=== PATIENT | male | born 1950 | race Caucasian/White ===

== ENCOUNTER 2017-09-13 09:57 | Inpatient (IN) | payer MEDICARE, BC ==
[2017-09-13] MEDS ORDERED: Ketorolac 30 MG/ML SDV IVPUSH ONE (10:53)
[2017-09-13] MEDS ORDERED: Sodium Chloride 0.9% 10 ML Syringe FLUSH PRN ×2 (10:53→14:38)
--- NOTE | 2017-09-13 10:59 | EDM.PDOC ---
ED HPI GENERAL MEDICAL PROBLEM - General Chief Complaint: Lower Extremity Injury/Pain Stated Complaint: BOTH FEET ARE SORE COUGH Time Seen by Provider: 09/13/17 10:45 Source of Information: Reports: Patient History Limitations: Reports: No Limitations - History of Present Illness INITIAL COMMENTS - FREE TEXT/NARRATIVE: 67 yo male with a pHx of borderline AODM and gout presents with pain and redness to both feet since this past . The left foot is much worse than the right one. No fever. Is aware of foods to avoid and has quit ETOH. Here with his . Does have a local provider. Onset: Gradual Onset Date: 09/10/17 Duration: Day(s):, Getting Worse Location: Reports: Lower Extremity, Left, Lower Extremity, Right Quality: Reports: Ache Severity: Moderate Improves with: Reports: None Worsens with: Reports: Other (? time) Context: Reports: Other (PHx of gout, says this feels similar) Associated Symptoms: Reports: No Other Symptoms. Denies: Fever/Chills Treatments GERONTOLOGY AIDE: Reports: Other (see below) (none) 10 Pain Score (Numeric/FACES): 2 - Related Data Allergies Allergy/AdvReac Type Severity Reaction Status Date / Time aspirin Allergy Severe Facial Verified 10/14/15 14:19 Swelling Home Meds: Home Meds Calcium Carbonate/Vitamin D3 [Caltrate 600 + D Tablet] 1 tab PO DAILY 10/14/15 [ History] Glucosamine [Glucosamine Sulfate] 500 mg PO DAILY 10/14/15 [History] Naproxen Sodium [Aleve] 220 mg PO DAILY 10/14/15 [History] Benzonatate [Tessalon Perle] 100 mg PO TID 09/13/17 [History] Dextromethorphan/guaiFENesin [Mucinex DM ER 600-30 MG] 1 tab PO BID 09/13/17 [ History] Past Medical History Musculoskeletal History: Reports: Gout - Past Surgical History Musculoskeletal Surgical History: Reports: Knee Replacement Social & Family History - Family History Oncologic: Reports: Breast, Lung - Tobacco Use Smoking Status *Q: Never Smoker Second Hand Smoke Exposure: No - Alcohol Use Days Per Week of Alcohol Use: 0 - Recreational Drug Use Recreational Drug Use: No Review of Systems - Review of Systems Review Of Systems: See Below Constitutional: Reports: No Symptoms Ears: Reports: No Symptoms Nose: Reports: Clear Discharge (cold sx's for a few days) Respiratory: Reports: No Symptoms Cardiovascular: Reports: No Symptoms GI/Abdominal: Reports: No Symptoms Genitourinary: Reports: No Symptoms Musculoskeletal: Reports: Foot Pain (bilaterally L > R) Skin: Reports: Erythema (devin. the L foot), Change in Color ED EXAM, GENERAL - Physical Exam Exam: See Below Exam Limited By: No Limitations General Appearance: Alert, WD/WN, No Apparent Distress Eye Exam: Bilateral Eye: Normal Inspection Ear Exam: Bilateral Ear: Auricle Normal, Canal Normal Throat/Mouth: Normal Voice, No Airway Compromise Head: Atraumatic, Normocephalic Neck: Normal Inspection Respiratory/Chest: No Respiratory Distress, Lungs Clear, Normal Breath Sounds, No Accessory Muscle Use Extremities: Increased Warmth (L foot dorsally.), Redness (devin the dorsum of the L foot), Other (both feet tender, mainly over the arches) Neurological: Alert, Oriented, CN II-XII Intact, Normal Cognition, No Motor/ Sensory Deficits Psychiatric: Normal Affect, Normal Mood Skin Exam: Warm, Dry, Intact, No Rash, Erythema, Increased Warmth (dorsum of L foot very red. MT joint of L foot red, mildly tender. R foot very subtle redness and tenderness, not as severe. ) Course - Vital Signs Last Recorded V/S: Last Vital Signs Temp 37.0 C 09/13/17 15:58 Pulse 95 09/13/17 15:10 Resp 20 09/13/17 15:10 BP 159/87 H 09/13/17 15:10 Pulse Ox 99 09/13/17 15:10 - Orders/Labs/Meds Orders: Active Orders 24 hr Category Date Time Status CULTURE BLOOD [BC] Stat Lab 09/13/17 13:10 Received CULTURE BLOOD [BC] Stat Lab 09/13/17 13:20 Received Blood Culture x2 Reflex Set [OM.PC] Urgent Oth 09/13/17 13:09 Ordered Medication Orders Acetaminophen (Tylenol) 650 mg PO Q4H PRN PRN Reason: Pain (Mild 1-3)/fever Benzonatate (Tessalon Perles) 100 mg PO TID PRN PRN Reason: Cough Dextrose (Glutose 15) 15 gm PO ASDIRECTED PRN PRN Reason: Hypoglycemia Dextrose/Water (Dextrose 50% In Water) 50 ml IV ASDIRECTED PRN PRN Reason: Hypoglycemia Enoxaparin Sodium (Lovenox) 40 mg SUBCUT Q24H [facility] Last Admin: 09/13/17 16:03 Dose: 40 mg Guaifenesin/Codeine Phosphate (Robitussin Ac) 10 ml PO Q4H PRN PRN Reason: Cough Last Admin: 09/13/17 16:39 Dose: 10 ml Cefazolin Sodium/Dextrose 1 gm (/ Premix) 50 mls @ 100 mls/hr IV Q8H [facility] Last Admin: 09/13/17 15:58 Dose: 100 mls/hr Lactated Ringer's (Ringers, Lactated) 1,000 mls @ 125 mls/hr IV ASDIRECTED [facility] Ibuprofen (Motrin) 400 mg PO Q6H [facility] Stop: 09/14/17 21:01 Last Admin: 09/13/17 15:58 Dose: 400 mg Insulin Aspart (Novolog) 0 unit SUBCUT QIDACANDBED [facility] PRN Reason: Protocol Last Admin: 09/13/17 16:39 Dose: 3 units Magnesium Hydroxide (Milk Of Magnesia) 30 ml PO Q12H PRN PRN Reason: Constipation Metformin HCl (Glucophage) 500 mg PO BIDMEALS [facility] Last Admin: 09/13/17 16:45 Dose: 500 mg Ondansetron HCl (Zofran) 4 mg IV Q4H PRN PRN Reason: Nausea/Vomiting Oxycodone HCl (Oxycodone) 5 mg PO Q4H PRN PRN Reason: Pain (moderate 4-6) Pneumococcal Polyvalent Vaccine (Pneumovax 23) 0.5 ml IM .ONCE ONE Stop: 09/15/17 10:01 Polyethylene Glycol (Miralax) 17 gm PO DAILY PRN PRN Reason: Constipation Senna/Docusate Sodium (Senna Plus) 1 tab PO BID PRN PRN Reason: Constipation Sodium Chloride (Saline Flush) 10 ml FLUSH ASDIRECTED PRN PRN Reason: Keep Vein Open Labs: Laboratory Tests 09/13/17 09/13/17 09/13/17 Range/Units 11:00 11:00 11:00 WBC 10.4 (4.5-11.0) K/uL RBC 4.36 (4.30-5.90) M/uL Hgb 12.8 (12.0-15.0) g/dL Hct 37.0 L (40.0-54.0) % MCV 85 (80-98) fL MCH 29 (27-31) pg MCHC 35 (32-36) % Plt Count 258 (150-400) K/uL ESR 91 H (0-20) mm/hr Sodium 129 L (140-148) mmol/L Potassium 4.5 (3.6-5.2) mmol/L Chloride 95 L (100-108) mmol/L Carbon Dioxide 26 (21-32) mmol/L Anion Gap 12.5 (5.0-14.0) mmol/L BUN 18 (7-18) mg/dL Creatinine 1.2 (0.8-1.3) mg/dL Est Cr Clr Drug Dosing 56.61 mL/min Estimated GFR (MDRD) > 60 (>60) Glucose 326 H (74-106) mg/dL Hemoglobin A1c (4.5-6.2) % Uric Acid (3.5-7.2) mg/dL Calcium 8.9 (8.5-10.1) mg/dL C-Reactive Protein (0.0-0.3) mg/dL 09/13/17 09/13/17 09/13/17 Range/Units 11:00 11:28 13:09 WBC (4.5-11.0) K/uL RBC (4.30-5.90) M/uL Hgb (12.0-15.0) g/dL Hct (40.0-54.0) % MCV (80-98) fL MCH (27-31) pg MCHC (32-36) % Plt Count (150-400) K/uL ESR (0-20) mm/hr Sodium (140-148) mmol/L Potassium (3.6-5.2) mmol/L Chloride (100-108) mmol/L Carbon Dioxide (21-32) mmol/L Anion Gap (5.0-14.0) mmol/L BUN (7-18) mg/dL Creatinine (0.8-1.3) mg/dL Est Cr Clr Drug Dosing mL/min Estimated GFR (MDRD) (>60) Glucose (74-106) mg/dL Hemoglobin A1c 7.8 H (4.5-6.2) % Uric Acid 4.2 (3.5-7.2) mg/dL Calcium (8.5-10.1) mg/dL C-Reactive Protein 5.14 H (0.0-0.3) mg/dL Meds: Medications Generic Name Dose Route Start Last Admin Trade Name Freq PRN Reason Stop Dose Admin Acetaminophen 650 mg 09/13/17 14:38 Tylenol PO Q4H PRN Pain (Mild 1-3)/fever Benzonatate 100 mg 09/13/17 16:13 Tessalon Perles PO TID PRN Cough Dextrose 15 gm 09/13/17 14:38 Glutose 15 PO ASDIRECTED PRN Hypoglycemia Dextrose/Water 50 ml 09/13/17 14:38 Dextrose 50% In Water IV ASDIRECTED PRN Hypoglycemia Enoxaparin Sodium 40 mg 09/13/17 16:00 09/13/17 16:03 Lovenox SUBCUT 40 mg Q24H [facility] Administration Guaifenesin/Codeine Phosphate 10 ml 09/13/17 16:13 09/13/17 16:39 Robitussin Ac PO 10 ml Q4H PRN Administration Cough Cefazolin Sodium/Dextrose 1 gm 50 mls @ 100 mls/hr 09/13/17 16:00 09/13/17 15 :58 / Premix IV 100 mls/hr Q8H [facility] Administration Lactated Ringer's 1,000 mls @ 125 mls/hr 09/13/17 17:15 Ringers, Lactated IV ASDIRECTED [facility] Ibuprofen 400 mg 09/13/17 15:00 09/13/17 15:58 Motrin PO 09/14/17 21:01 400 mg Q6H [facility] Administration Insulin Aspart 0 unit 09/13/17 17:00 09/13/17 16:39 Novolog SUBCUT 3 units QIDACANDBED [facility] Administration Protocol Magnesium Hydroxide 30 ml 09/13/17 14:38 Milk Of Magnesia PO Q12H PRN Constipation Metformin HCl 500 mg 09/13/17 17:00 09/13/17 16:45 Glucophage PO 500 mg BIDMEALS [facility] Administration Ondansetron HCl 4 mg 09/13/17 14:38 Zofran IV Q4H PRN Nausea/Vomiting Oxycodone HCl 5 mg 09/13/17 14:38 Oxycodone PO Q4H PRN Pain (moderate 4-6) Pneumococcal Polyvalent Vaccine 0.5 ml 09/15/17 10:00 Pneumovax 23 IM 09/15/17 10:01 .ONCE ONE Polyethylene Glycol 17 gm 09/13/17 14:38 Miralax PO DAILY PRN Constipation Senna/Docusate Sodium 1 tab 09/13/17 14:38 Senna Plus PO BID PRN Constipation Sodium Chloride 10 ml 09/13/17 14:38 Saline Flush FLUSH ASDIRECTED PRN Keep Vein Open Discontinued Medications Generic Name Dose Route Start Last Admin Trade Name Freq PRN Reason Stop Dose Admin Lactated Ringer's 1,000 mls @ 250 mls/hr 09/13/17 13:15 09/13/17 13:52 Ringers, Lactated IV 09/13/17 17:16 250 mls/hr ASDIRECTED [facility] Administration Piperacillin/Tazobactam/ 50 mls @ 100 mls/hr 09/13/17 13:30 09/13/17 13:52 Dextrose 3.375 gm/ Premix IV 100 mls/hr Q6H [facility] Administration Insulin Human Regular 12 unit 09/13/17 11:27 09/13/17 11:34 Novolin R SUBCUT 09/13/17 11:28 12 units ONETIME ONE Administration Protocol Ketorolac Tromethamine 30 mg 09/13/17 10:53 09/13/17 11:25 Toradol IVPUSH 09/13/17 10:54 30 mg ONETIME ONE Administration Sodium Chloride 10 ml 09/13/17 10:53 09/13/17 11:25 Saline Flush FLUSH 10 ml ASDIRECTED PRN Administration Keep Vein Open Departure - Departure Time of Disposition: 15:55 Disposition: Admitted As Inpatient 67 Condition: Fair Clinical Impression: Cellulitis of foot, left - Discharge Information
[2017-09-13] MEDS ORDERED: Insulin Regular, Human 100 Units/ML 10 ML Vial SUBCUT ONE (11:27)
[2017-09-13] MEDS ORDERED: Lactated Ringers 1,000 ML IV SCH (13:15)
[2017-09-13] MEDS ORDERED: Piperacillin/Tazobactam 3.375 GM in Sodium Chloride 0.9% 50 ML IV SCH (13:15)
[2017-09-13] MEDS ORDERED: Piperacillin/Tazobactam/Dext 3.375 GM in Premix Bag 1 BAG IV SCH (13:30)
--- NOTE | 2017-09-13 13:59 | PCM.HP ---
H&P History of Present Illness - General Date of Service: 09/13/17 Admit Problem/Dx: Admission Diagnosis/Problem Admission Diagnosis/Problem Cellulitis Source of Information: Patient, Family, Provider, RN Notes Reviewed History Limitations: Reports: No Limitations - History of Present Illness Initial Comments - Free Text/Narative: Mr. Mcbride is a 67-year-old gentleman who was admitted through the emergency department with cellulitis of his left foot and uncontrolled type 2 diabetes mellitus. He does have a known history of gout with intermittent exacerbations. He first developed pain in his left foot 3 days ago and assumed at that time that he was developing some gout. He took nonsteroidal therapy with naproxen but despite this had progressive symptoms with increased swelling and development of erythema across the dorsum of the foot. Pain became so severe today that he was unable to put any weight on the foot and he presented to the emergency department for further evaluation. White blood cell count is found to be normal but there is elevation of his sedimentation rate and CRP. He denies fevers, chills, sweats or anorexia. Glucose level was found to be significantly elevated greater than 300, he admits a history of diabetes but has not been monitoring glucose levels over the past year. - Related Data Allergies/Adverse Reactions: Allergies Allergy/AdvReac Type Severity Reaction Status Date / Time aspirin Allergy Severe Facial Verified 10/14/15 14:19 Swelling Home Medications: Home Meds Calcium Carbonate/Vitamin D3 [Caltrate 600 + D Tablet] 1 tab PO DAILY 10/14/15 [ History] Glucosamine [Glucosamine Sulfate] 500 mg PO DAILY 10/14/15 [History] Naproxen Sodium [Aleve] 220 mg PO DAILY 10/14/15 [History] Benzonatate [Tessalon Perle] 09/13/17 [History] Past Medical History Musculoskeletal History: Reports: Gout - Past Surgical History Musculoskeletal Surgical History: Reports: Knee Replacement Social & Family History - Family History Oncologic: Reports: Breast, Lung - Tobacco Use Smoking Status *Q: Never Smoker Second Hand Smoke Exposure: No - Alcohol Use Days Per Week of Alcohol Use: 0 - Recreational Drug Use Recreational Drug Use: No H&P Review of Systems - Review of Systems: Review Of Systems: See Below General: Reports: Weakness. Denies: Fever, Chills HEENT: Reports: No Symptoms Pulmonary: Reports: No Symptoms Cardiovascular: Reports: No Symptoms Gastrointestinal: Reports: No Symptoms Genitourinary: Reports: No Symptoms Musculoskeletal: Reports: Foot Pain (Left foot) Skin: Reports: Erythema (Left foot) Psychiatric: Reports: No Symptoms Neurological: Reports: No Symptoms Hematologic/Lymphatic: Reports: No Symptoms Immunologic: Reports: No Symptoms Exam - Exam Exam: See Below - Vital Signs Vital Signs: Last Vital Signs Temp 97.1 F 09/13/17 10:33 Pulse 89 09/13/17 12:15 Resp 21 H 09/13/17 12:15 BP 143/90 H 09/13/17 12:15 Pulse Ox 93 L 09/13/17 12:15 Weight: 267 lb - Exam Quality Assessment: DVT Prophylaxis General: Alert, Oriented, Cooperative, Mild Distress HEENT: Conjunctiva Clear, Hearing Intact, Mucosa Moist & [place], Normal Nasal Septum, Posterior Pharynx Clear, Pupils Equal Neck: Supple, Trachea Midline, +2 Carotid Pulse wo Bruit Lungs: Clear to Auscultation, Normal Respiratory Effort Cardiovascular: Regular Rate, Regular Rhythm, Normal S1, Normal S2. No: Systolic Murmur, Diastolic Murmur GI/Abdominal Exam: Soft, Non-Tender, No Organomegaly, No Distention Back Exam: Normal Inspection, Full Range of Motion Extremities: Increased Warmth, Redness (Swelling left foot) Skin: Warm, Dry, Intact Neurological: Cranial Nerves Intact, Strength Equal Bilateral, Normal Speech, Normal Tone, Sensation Intact. No: Focal Deficit Neuro Extensive - Mental Status: Alert, Oriented x3, Normal Mood/Affect, Normal Cognition, Memory Intact - Patient Data Lab Results Last 24 hrs: Laboratory Results - last 24 hr 09/13/17 09/13/17 09/13/17 Range/Units 11:00 11:00 11:00 WBC 10.4 (4.5-11.0) K/uL RBC 4.36 (4.30-5.90) M/uL Hgb 12.8 (12.0-15.0) g/dL Hct 37.0 L (40.0-54.0) % MCV 85 (80-98) fL MCH 29 (27-31) pg MCHC 35 (32-36) % Plt Count 258 (150-400) K/uL ESR 91 H (0-20) mm/hr Sodium 129 L (140-148) mmol/L Potassium 4.5 (3.6-5.2) mmol/L Chloride 95 L (100-108) mmol/L Carbon Dioxide 26 (21-32) mmol/L Anion Gap 12.5 (5.0-14.0) mmol/L BUN 18 (7-18) mg/dL Creatinine 1.2 (0.8-1.3) mg/dL Est Cr Clr Drug Dosing 56.61 mL/min Estimated GFR (MDRD) > 60 (>60) Glucose 326 H (74-106) mg/dL Hemoglobin A1c (4.5-6.2) % Uric Acid (3.5-7.2) mg/dL Calcium 8.9 (8.5-10.1) mg/dL C-Reactive Protein (0.0-0.3) mg/dL 09/13/17 09/13/17 09/13/17 Range/Units 11:00 11:28 13:09 WBC (4.5-11.0) K/uL RBC (4.30-5.90) M/uL Hgb (12.0-15.0) g/dL Hct (40.0-54.0) % MCV (80-98) fL MCH (27-31) pg MCHC (32-36) % Plt Count (150-400) K/uL ESR (0-20) mm/hr Sodium (140-148) mmol/L Potassium (3.6-5.2) mmol/L Chloride (100-108) mmol/L Carbon Dioxide (21-32) mmol/L Anion Gap (5.0-14.0) mmol/L BUN (7-18) mg/dL Creatinine (0.8-1.3) mg/dL Est Cr Clr Drug Dosing mL/min Estimated GFR (MDRD) (>60) Glucose (74-106) mg/dL Hemoglobin A1c 7.8 H (4.5-6.2) % Uric Acid 4.2 (3.5-7.2) mg/dL Calcium (8.5-10.1) mg/dL C-Reactive Protein 5.14 H (0.0-0.3) mg/dL Result Diagrams: 09/13/17 11:00 09/13/17 11:00 *Q Meaningful Use (ADM) - VTE *Q VTE Criteria *Q: - VTE Risk Assess *Q Each Risk Factor Represents 1 Point: Obesity ( BMI > 25 kg/m2) Total Score 1 Point Risk Factors: 1 Each Risk Factor Represents 2 Points: Age 60 - 74 Years Total Score 2 Point Risk Factors: 2 Each Risk Factor Represents 3 Points: None Total Score 3 Point Risk Factors: 0 Each Risk Factor Represents 5 Points: None Total Score 5 Point Risk Factors: 0 Venous Thromboembolism Risk Factor Score *Q: 3 - Stroke *Q Stroke Criteria *Q: - AMI *Q AMI Criteria *Q: Problem List Initiated/Reviewed/Updated: Yes Orders Last 24hrs: Active Orders 24 hr Category Date Time Status Patient Status Manage Transfer [TRANSFER] Routine ADT 09/13/17 13:41 Active CULTURE BLOOD [BC] Stat Lab 09/13/17 13:10 Received CULTURE BLOOD [BC] Stat Lab 09/13/17 13:20 Received Lactated Ringers [Ringers, Lactated] 1,000 ml Med 09/13/17 13:15 Active IV ASDIRECTED Piperacillin/Tazobactam/Dext [Zosyn in Dextrose Iso- Med 09/13/17 13:30 Active Osmotic 3.375 GM] 3.375 gm Premix Bag 1 bag IV Q6H Sodium Chloride 0.9% [Saline Flush] Med 09/13/17 10:53 Active 10 ml FLUSH ASDIRECTED PRN Blood Culture x2 Reflex Set [OM.PC] Urgent Oth 09/13/17 13:09 Ordered Saline Lock Insert [OM.PC] Routine Oth 09/13/17 10:53 Ordered Resuscitation Status Routine Resus Stat 09/13/17 13:43 Ordered Medication Orders Lactated Ringer's (Ringers, Lactated) 1,000 mls @ 250 mls/hr IV ASDIRECTED [facility] Stop: 09/13/17 17:16 Last Admin: 09/13/17 13:52 Dose: 250 mls/hr Piperacillin/Tazobactam/ (Dextrose 3.375 gm/ Premix) 50 mls @ 100 mls/hr IV Q6H [facility] Last Admin: 09/13/17 13:52 Dose: 100 mls/hr Sodium Chloride (Saline Flush) 10 ml FLUSH ASDIRECTED PRN PRN Reason: Keep Vein Open Last Admin: 09/13/17 11:25 Dose: 10 ml Assessment/Plan Comment:: ASSESSMENT AND PLAN CELLULITIS LEFT FOOT-increased pain and swelling over the past 3 days associated with erythema and increased warmth. History of gout, current inflammation spreads across the dorsum of the foot with associated erythema. -IV fluids for hydration -Pain medication as needed -Controlled diabetes -Blood cultures pending -Uric acid level pending -Cefazolin 1 g IV every 8 hours TYPE 2 DIABETES MELLITUS-uncontrolled with significant elevation in glucose -Consistent carb diet -Metformin 500 mg by mouth twice a day -4 times a day glucometers -Hemoglobin A1c in a.m. -Low-dose sliding scale NovoLog -Consult staff development educator tomorrow MAINTENANCE ISSUES -DVT prophylaxis; Lovenox 40 mg subcutaneous daily -GI prophylaxis; not indicated -Almazan catheter; not indicated -Nutrition; consistent carb diet -Nicotine dependence; not required CODE STATUS-FULL CODE ADMISSION STATUS-patient will be admitted to inpatient status, expect at least a 2 night hospital stay for evaluation and management of problems as outlined above. At the time of this admission I do not reasonably expected evaluation and management of this problem will require more than a 96 hour hospital stay. DISPOSITION-anticipate discharge to home after the hospital stay. PRIMARY CARE PROVIDER-Dr. Fraire
[2017-09-13] MEDS ORDERED: Magnesium Hydroxide 400 MG/5 ML Susp 30 ML Cup PO PRN (14:38)
[2017-09-13] MEDS ORDERED: Ondansetron 4 MG/2 ML SDV IV PRN (14:38)
[2017-09-13] MEDS ORDERED: Glucose Gel 15 GM in 37.5 GM Tube PO PRN (14:38)
[2017-09-13] MEDS ORDERED: Acetaminophen 325 MG Tab PO PRN (14:38)
[2017-09-13] MEDS ORDERED: 50% Dextrose in Water 50 ML Syringe IV PRN (14:38)
[2017-09-13] MEDS ORDERED: Polyethylene Glycol 3350 Powder 17 GM Packet PO PRN (14:38)
[2017-09-13] MEDS ORDERED: oxyCODONE 5 MG Tab PO PRN (14:38)
[2017-09-13] MEDS: Ibuprofen 400 MG Tab PO SCH ×2 (15:58→21:22)
[2017-09-13] MEDS: ceFAZolin 1 GM in Premix Bag 1 BAG IV SCH ×2 (15:58→23:44)
[2017-09-13] MEDS: Enoxaparin 40 MG/0.4 ML Syringe SUBCUT SCH (16:03)
[2017-09-13] MEDS ORDERED: Benzonatate 100 MG Cap PO PRN (16:13)
[2017-09-13] MEDS: Codeine/guaiFENesin 100mg-10 MG/5 ML Syrup 10 ML Cup PO PRN ×2 (16:39→20:23)
[2017-09-13] MEDS: Insulin Aspart 100 Units/ML 3 ML Pen SUBCUT SCH ×2 (16:39→21:19)
[2017-09-13] MEDS: metFORMIN 500 MG Tab PO SCH (16:45)
[2017-09-13] MEDS: Lactated Ringers 1,000 ML IV SCH (18:54)
[2017-09-14] MEDS: Lactated Ringers 1,000 ML IV SCH (04:08)
[2017-09-14] MEDS: Codeine/guaiFENesin 100mg-10 MG/5 ML Syrup 10 ML Cup PO PRN ×3 (04:10→19:48)
[2017-09-14] MEDS: Ibuprofen 400 MG Tab PO SCH ×4 (04:11→21:09)
[2017-09-14] MEDS: ceFAZolin 1 GM in Premix Bag 1 BAG IV SCH ×3 (07:48→23:41)
[2017-09-14] MEDS: metFORMIN 500 MG Tab PO SCH ×2 (07:49→16:57)
[2017-09-14] MEDS: Insulin Aspart 100 Units/ML 3 ML Pen SUBCUT SCH ×4 (07:49→21:09)
--- NOTE | 2017-09-14 10:55 | PCM.PN ---
- General Info Date of Service: 09/14/17 Functional Status: Reports: Pain Controlled, Tolerating Diet - Review of Systems General: Denies: Fever Pulmonary: Reports: Cough Musculoskeletal: Reports: Foot Pain (left) Systems Review Comment:: No acute events overnight. No fevers overnight. Foot is feeling much better today though there is still some swelling. White blood cell count has improved compared to yesterday. He is able to walk on his foot without significant pain today. Blood cultures are negative at 1 day. - Patient Data Vitals - Most Recent: Last Vital Signs Temp 35.8 C 09/14/17 07:46 Pulse 70 09/14/17 07:46 Resp 16 09/14/17 07:46 BP 107/52 L 09/14/17 07:46 Pulse Ox 98 09/14/17 07:46 Weight - Most Recent: 117.6 kg I&O - Last 24 Hours: Intake & Output 09/13/17 09/14/17 09/14/17 22:59 06:59 14:59 Intake Total 450 863 670 Output Total 0 Balance 450 863 670 Lab Results Last 24 Hours: Laboratory Results - last 24 hr 09/14/17 09/14/17 Range/Units 05:41 05:41 WBC 5.8 (4.5-11.0) K/uL RBC 3.86 L (4.30-5.90) M/uL Hgb 11.4 L (12.0-15.0) g/dL Hct 33.0 L (40.0-54.0) % MCV 86 (80-98) fL MCH 30 (27-31) pg MCHC 35 (32-36) % Plt Count 226 (150-400) K/uL Add Manual Diff Yes Neutrophils % (Manual) 64 (36-66) % Band Neutrophils % 1 L (5-11) % Lymphocytes % (Manual) 24 (24-44) % Monocytes % (Manual) 10 H (2-6) % Eosinophils % (Manual) 1 L (2-4) % Sodium 136 L (140-148) mmol/L Potassium 4.3 (3.6-5.2) mmol/L Chloride 101 (100-108) mmol/L Carbon Dioxide 26 (21-32) mmol/L Anion Gap 13.3 (5.0-14.0) mmol/L BUN 18 (7-18) mg/dL Creatinine 1.1 (0.8-1.3) mg/dL Est Cr Clr Drug Dosing 61.76 mL/min Estimated GFR (MDRD) > 60 (>60) Glucose 256 H (74-106) mg/dL Calcium 8.7 (8.5-10.1) mg/dL Med Orders - Current: Current Medications Acetaminophen (Tylenol) 650 mg PO Q4H PRN PRN Reason: Pain (Mild 1-3)/fever Benzonatate (Tessalon Perles) 100 mg PO TID PRN PRN Reason: Cough Dextrose (Glutose 15) 15 gm PO ASDIRECTED PRN PRN Reason: Hypoglycemia Dextrose/Water (Dextrose 50% In Water) 50 ml IV ASDIRECTED PRN PRN Reason: Hypoglycemia Enoxaparin Sodium (Lovenox) 40 mg SUBCUT Q24H [facility] Last Admin: 09/13/17 16:03 Dose: 40 mg Guaifenesin/Codeine Phosphate (Robitussin Ac) 10 ml PO Q4H PRN PRN Reason: Cough Last Admin: 09/14/17 04:10 Dose: 10 ml Cefazolin Sodium/Dextrose 1 gm (/ Premix) 50 mls @ 100 mls/hr IV Q8H [facility] Last Admin: 09/14/17 07:48 Dose: 100 mls/hr Ibuprofen (Motrin) 400 mg PO Q6H [facility] Stop: 09/14/17 21:01 Last Admin: 09/14/17 09:00 Dose: 400 mg Insulin Aspart (Novolog) 0 unit SUBCUT QIDACANDBED [facility] PRN Reason: Protocol Last Admin: 09/14/17 07:49 Dose: 3 units Magnesium Hydroxide (Milk Of Magnesia) 30 ml PO Q12H PRN PRN Reason: Constipation Metformin HCl (Glucophage) 500 mg PO BIDMEALS [facility] Last Admin: 09/14/17 07:49 Dose: 500 mg Ondansetron HCl (Zofran) 4 mg IV Q4H PRN PRN Reason: Nausea/Vomiting Oxycodone HCl (Oxycodone) 5 mg PO Q4H PRN PRN Reason: Pain (moderate 4-6) Pneumococcal Polyvalent Vaccine (Pneumovax 23) 0.5 ml IM .ONCE ONE Stop: 09/15/17 10:01 Polyethylene Glycol (Miralax) 17 gm PO DAILY PRN PRN Reason: Constipation Senna/Docusate Sodium (Senna Plus) 1 tab PO BID PRN PRN Reason: Constipation Sodium Chloride (Saline Flush) 10 ml FLUSH ASDIRECTED PRN PRN Reason: Keep Vein Open Discontinued Medications Lactated Ringer's (Ringers, Lactated) 1,000 mls @ 250 mls/hr IV ASDIRECTED [facility] Stop: 09/13/17 17:16 Last Admin: 09/13/17 13:52 Dose: 250 mls/hr Piperacillin/Tazobactam/ (Dextrose 3.375 gm/ Premix) 50 mls @ 100 mls/hr IV Q6H [facility] Last Admin: 09/13/17 13:52 Dose: 100 mls/hr Lactated Ringer's (Ringers, Lactated) 1,000 mls @ 125 mls/hr IV ASDIRECTED [facility] Last Admin: 09/14/17 04:08 Dose: 125 mls/hr Insulin Human Regular (Novolin R) 12 unit SUBCUT ONETIME ONE PRN Reason: Protocol Stop: 09/13/17 11:28 Last Admin: 09/13/17 11:34 Dose: 12 units Ketorolac Tromethamine (Toradol) 30 mg IVPUSH ONETIME ONE Stop: 09/13/17 10:54 Last Admin: 09/13/17 11:25 Dose: 30 mg Sodium Chloride (Saline Flush) 10 ml FLUSH ASDIRECTED PRN PRN Reason: Keep Vein Open Last Admin: 09/13/17 11:25 Dose: 10 ml - Exam Quality Assessment: No: Supplemental Oxygen General: Alert, Oriented, Cooperative, No Acute Distress Neck: Supple Lungs: Normal Respiratory Effort GI/Abdominal Exam: No Distention Extremities: Pedal Edema (left foot) Skin: Warm, Dry, Rash (erythema over dorsum of left foot. Mild warmth over MTP' s left forefoot) - Problem List Review Problem List Initiated/Reviewed/Updated: Yes - My Orders Last 24 Hours: My Active Orders 09/14/17 10:48 Convert IV to Saline Lock [OM.PC] Routine - Plan Plan:: ASSESSMENT AND PLAN CELLULITIS LEFT FOOT - much improved since the time of admission. Still has a fair amount of swelling and some erythema the looks dramatically better today. No fevers overnight. White blood cell count significantly decreased from yesterday. He does have a history of gout but uric acid level was normal and his foot is much better without any gout treatment. -Saline lock IV -Pain medication as needed -Blood cultures pending -Cefazolin 1 g IV every 8 hours TYPE 2 DIABETES MELLITUS - uncontrolled with significant elevation in glucose. Hemoglobin A1c 7.8 suggesting we should be able to get by with oral medications after discharge. Sugars remained elevated but are improving. -Consistent carb diet -Metformin 500 mg by mouth twice a day -4 times a day glucometers -Low-dose sliding scale NovoLog -Consult peer educator MAINTENANCE ISSUES -DVT prophylaxis; Lovenox 40 mg subcutaneous daily -GI prophylaxis; not indicated -Almazan catheter; not indicated -Nutrition; consistent carb diet DISPOSITION - anticipate discharge to home after the hospital stay, possibly as early as tomorrow if stable overnight Mando Valentin M.D.
[2017-09-14] MEDS: Enoxaparin 40 MG/0.4 ML Syringe SUBCUT SCH (15:47)
[2017-09-15] MEDS: Insulin Aspart 100 Units/ML 3 ML Pen SUBCUT SCH ×2 (07:58→11:52)
[2017-09-15] MEDS: metFORMIN 500 MG Tab PO SCH (08:00)
[2017-09-15] MEDS: ceFAZolin 1 GM in Premix Bag 1 BAG IV SCH (09:35)
[2017-09-15] MEDS ORDERED: Pneumococcal Polyvalent-23 Vaccine 0.5 ML SDV IM ONE (10:00)
[2017-09-15 12:04] VITALS: BP 160/85
--- NOTE | 2017-09-15 13:52 | PCM.DCSUM1 ---
Discharge Summary - Hospital Course Brief History: 67-year-old male with history of intermittent gout, prediabetes who presented with left foot pain, redness and swelling. He was admitted for management of cellulitis plus or minus a component of inflammatory arthropathy as well as blood sugar management with hyperglycemia noted at presentation. - Discharge Data Discharge Date: 09/15/17 Discharge Disposition: Home, Self-Care 01 Condition: Good - Discharge Diagnosis/Problem(s) (1) Cellulitis of foot, left SNOMED Code(s): 349482751 ICD Code: L03.116 - CELLULITIS OF LEFT LOWER LIMB Status: Acute Current Visit: Yes (2) Type 2 diabetes mellitus SNOMED Code(s): 98634376 ICD Code: E11.9 - TYPE 2 DIABETES MELLITUS WITHOUT COMPLICATIONS Status: Chronic Current Visit: No Qualifiers: Diabetes mellitus complication status: without complication Diabetes mellitus fci insulin use: without psychiatric rn use Qualified Code(s): E11.9 - Type 2 diabetes mellitus without complications (3) History of gout SNOMED Code(s): 524944300 ICD Code: Z87.39 - PERSONAL HISTORY OF DISEASES OF THE MS SYS AND CONN TISS Status: Chronic Current Visit: No - Patient Summary/Data Labs Pending at D/C: Final results of blood cultures which are negative at the time of discharge Hospital Course: Levi presented to the emergency room with left foot pain and swelling so severe that he was unable to walk on his foot. Workup in the emergency room was concerning for cellulitis left foot and he was also noted to have significant hyperglycemia with no previous diagnosis of diabetes. He was admitted to the hospital for IV antibiotics and blood sugar control. Overnight following admission he had significant improvement in his left foot pain and swelling after cefazolin was started. His white blood cell count improved from just over 10,000 to down to 5000. Symptomatically he felt quite a bit better. Blood sugars were still moderately elevated but were better than at the time of admission after metformin and sliding scale insulin were initiated. There was some concern about gout or possibly pseudogout at the time of presentation but his uric acid level was normal so no anti-inflammatory medications were initiated. Overnight the second night following admission he had increased pain in his left foot as well as his right foot after ambulation. He is developed some redness between the second and third toes on the right foot in addition to the redness and swelling over the MTP joints on the left foot. He may have a combination of cellulitis as well as an inflammatory arthropathy. Considerations for the inflammation could be gout versus pseudogout. His pain is tolerable at this time and he wishes to continue his management as an outpatient because he is feeling quite a bit better. He has had good success utilizing colchicine for his gout in the past and would like to use this medication for its anti-inflammatory component. He has a 5 day prescription for this medication. I did elect to continue his antibiotics for 7 more days to cover the probable infectious component with cellulitis involving the left foot. He is able to walk around without significant discomfort. Pain has been controlled with no need for narcotic medications. He'll be discharged home with the above medication changes and will be following up early next week to ensure that he continues to improve. For his diabetes we elected send him home with metformin and he does have an upcoming appointment for dietary counseling. We did check a hemoglobin A1c at the time of admission and it was 7.8. - Patient Instructions Diet: Diabetic Diet Activity: As Tolerated Driving: May Drive Today Showering/Bathing: May Shower Notify Provider of: Fever, Increased Pain, Swelling and Redness, Nausea and/or Vomiting Other/Special Instructions: 1. You were in the hospital for management of cellulitis involving her left foot. I am suspicious there is an inflammatory component, possibly gout as well as the infection of the skin. I recommend 16 additional doses of cephalexin taken 3 times daily. Your first dose will be due tonight at bedtime. This medication may cause stomach upset and can be taken with food. For the possible gout I have provided a prescription for colchicine which you should take twice daily until your symptoms have resolved and then take for one more day after your symptoms have resolved. 2. Also noted during the hospital stay were elevated blood sugars consistent with diabetes mellitus. Your hemoglobin A1c was elevated at 7.8 with a goal of being less than 7 or even lower such as 6.5. We have started you on metformin 500 mg twice daily with breakfast and supper. You have follow-up scheduled with Karen Fowler for dietary education. 3. Please continue your other medications as previously prescribed. 4. Seek medical attention if you develop fever greater than 101, have increasing swelling or increasing pain in either of your feet or if you develop persistent vomiting or diarrhea. - Discharge Plan Prescriptions/Med Rec: Cephalexin 500 mg PO TID #16 capsule Colchicine 0.6 mg PO BID #10 capsule metFORMIN [Glucophage] 500 mg PO BIDMEALS #60 tablet Home Medications: Home Meds Calcium Carbonate/Vitamin D3 [Caltrate 600 Plus D3 Tablet] 1 tab PO DAILY [History] Glucosamine [Glucosamine Sulfate] 500 mg PO DAILY 10/14/15 [History] Naproxen Sodium [Aleve] 220 mg PO DAILY 10/14/15 [History] Benzonatate [Tessalon Perle] 100 mg PO TID 09/13/17 [History] Dextromethorphan/guaiFENesin [Mucinex DM ER 600-30 MG] 1 tab PO BID 09/13/17 [ History] Cephalexin 500 mg PO TID #16 capsule 09/15/17 [Rx] Colchicine 0.6 mg PO BID #10 capsule 09/15/17 [Rx] metFORMIN [Glucophage] 500 mg PO BIDMEALS #60 tablet 09/15/17 [Rx] Patient Handouts: Diabetes and Foot Care, Cellulitis, Adult, Cephalexin tablets or capsules Forms: ED Department Discharge Referrals: Karen Fowler [Registered Dietitian] - 09/25/17 10:30 am (Bring blood sugar records with to appointment.) Kvng Fraire MD [Primary Care Provider] - (follow-up later this week or early next week if your symptoms do not continue to improve) - Discharge Summary/Plan Comment DC Time >30 min.: No (25) - Patient Data Vitals - Most Recent: Last Vital Signs Temp 36.3 C 09/15/17 12:03 Pulse 89 09/15/17 12:03 Resp 17 09/15/17 12:03 BP 160/85 H 09/15/17 12:03 Pulse Ox 98 09/15/17 12:03 Weight - Most Recent: 118.558 kg I&O - Last 24 hours: Intake & Output 09/14/17 09/15/17 09/15/17 22:59 06:59 14:59 Intake Total 410 750 910 Balance 410 750 910 Med Orders - Current: Current Medications Acetaminophen (Tylenol) 650 mg PO Q4H PRN PRN Reason: Pain (Mild 1-3)/fever Last Admin: 09/15/17 02:03 Dose: 650 mg Benzonatate (Tessalon Perles) 100 mg PO TID PRN PRN Reason: Cough Colchicine (Colcrys) 0.6 mg PO ONETIME ONE Stop: 09/15/17 14:01 Dextrose (Glutose 15) 15 gm PO ASDIRECTED PRN PRN Reason: Hypoglycemia Dextrose/Water (Dextrose 50% In Water) 50 ml IV ASDIRECTED PRN PRN Reason: Hypoglycemia Enoxaparin Sodium (Lovenox) 40 mg SUBCUT Q24H [facility] Last Admin: 09/14/17 15:47 Dose: 40 mg Guaifenesin/Codeine Phosphate (Robitussin Ac) 10 ml PO Q4H PRN PRN Reason: Cough Last Admin: 09/14/17 19:48 Dose: 10 ml Cefazolin Sodium/Dextrose 1 gm (/ Premix) 50 mls @ 100 mls/hr IV ONETIME ONE Stop: 09/15/17 14:29 Insulin Aspart (Novolog) 0 unit SUBCUT QIDACANDBED [facility] PRN Reason: Protocol Last Admin: 09/15/17 11:52 Dose: 2 units Magnesium Hydroxide (Milk Of Magnesia) 30 ml PO Q12H PRN PRN Reason: Constipation Metformin HCl (Glucophage) 500 mg PO BIDNYALS [facility] Last Admin: 09/15/17 08:00 Dose: 500 mg Ondansetron HCl (Zofran) 4 mg IV Q4H PRN PRN Reason: Nausea/Vomiting Oxycodone HCl (Oxycodone) 5 mg PO Q4H PRN PRN Reason: Pain (moderate 4-6) Polyethylene Glycol (Miralax) 17 gm PO DAILY PRN PRN Reason: Constipation Senna/Docusate Sodium (Senna Plus) 1 tab PO BID PRN PRN Reason: Constipation Sodium Chloride (Saline Flush) 10 ml FLUSH ASDIRECTED PRN PRN Reason: Keep Vein Open Discontinued Medications Lactated Ringer's (Ringers, Lactated) 1,000 mls @ 250 mls/hr IV ASDIRECTED [facility] Stop: 09/13/17 17:16 Last Admin: 09/13/17 13:52 Dose: 250 mls/hr Piperacillin/Tazobactam/ (Dextrose 3.375 gm/ Premix) 50 mls @ 100 mls/hr IV Q6H [facility] Last Admin: 09/13/17 13:52 Dose: 100 mls/hr Cefazolin Sodium/Dextrose 1 gm (/ Premix) 50 mls @ 100 mls/hr IV Q8H [facility] Last Admin: 09/15/17 09:35 Dose: 100 mls/hr Lactated Ringer's (Ringers, Lactated) 1,000 mls @ 125 mls/hr IV ASDIRECTED NEFTALI Last Admin: 09/14/17 04:08 Dose: 125 mls/hr Ibuprofen (Motrin) 400 mg PO Q6H [facility] Stop: 09/14/17 21:01 Last Admin: 09/14/17 21:09 Dose: 400 mg Insulin Human Regular (Novolin R) 12 unit SUBCUT ONETIME ONE PRN Reason: Protocol Stop: 09/13/17 11:28 Last Admin: 09/13/17 11:34 Dose: 12 units Ketorolac Tromethamine (Toradol) 30 mg IVPUSH ONETIME ONE Stop: 09/13/17 10:54 Last Admin: 09/13/17 11:25 Dose: 30 mg Pneumococcal Polyvalent Vaccine (Pneumovax 23) 0.5 ml IM .ONCE ONE Stop: 09/15/17 10:01 Last Admin: 09/15/17 09:36 Dose: 0.5 ml Sodium Chloride (Saline Flush) 10 ml FLUSH ASDIRECTED PRN PRN Reason: Keep Vein Open Last Admin: 09/13/17 11:25 Dose: 10 ml - Exam Quality Assessment: Denies: Supplemental Oxygen General: Reports: Alert, Oriented, Cooperative, No Acute Distress Lungs: Reports: Normal Respiratory Effort Extremities: Pedal Edema (Left foot), Other (Small area of redness and warmth as well as tenderness between the second and third toes on the right foot. No tenderness on the plantar aspect of this foot. Left foot has swelling as well as some mild redness and warmth mainly over the MTP joints. The dorsum of the foot is tender to touch but no tenderness over the plantar aspect of the foot.) Skin: Reports: Warm, Dry Psy/Mental Status: Reports: Alert, Normal Affect *Q Meaningful Use (DIS) - VTE *Q VTE Criteria *Q: - Stroke *Q Stroke Criteria *Q: - AMI *Q AMI Criteria *Q:
[2017-09-15] MEDS ORDERED: Colchicine 0.6 MG Tab PO ONE (14:00)
[2017-09-15] MEDS ORDERED: ceFAZolin 1 GM in Premix Bag 1 BAG IV ONE (14:00)
== END 2017-09-15 15:30 | disposition home or self-care (01) | DRG 603 ==
LOC: JP.ED 09:57 → JP.MS 13:41
PROVIDERS: ADMIT Hospitalist; ATTEND Internal Medicine
DX: L03.116 Cellulitis of left lower limb (principal); E11.65 Type 2 diabetes mellitus with hyperglycemia; Z79.84 Long term (current) use of oral hypoglycemic drugs; Z87.39 Personal history of other diseases of the musculoskeletal system and connective tissue; Z23 Encounter for immunization; Z96.659 Presence of unspecified artificial knee joint; Z88.6 Allergy status to analgesic agent
CPT/HCPCS: 36415; 80048; 83036; 84550; 85027; 85651; 86140; 87040 ×2; 96374; 99284; A9270; J1885; J7050; 82962; 85025; 90732; 99283; G0009; J0690; J1650; J2543; J7120

== ENCOUNTER 2021-05-24 08:11 | Day surgery (SDC) | payer MEDICARE ==
[2021-05-24] MEDS ORDERED: Midazolam 1 MG/ML 2 ML SDV ONE (08:34)
[2021-05-24] MEDS ORDERED: fentaNYL 100 MCG/2 ML SDV ONE (08:34)
[2021-05-24] MEDS ORDERED: Propofol 200 MG/20 ML SDV ONE (08:34)
[2021-05-24] MEDS ORDERED: Sodium Chloride 0.9% 1,000 ML IV SCH (09:00)
[2021-05-24 12:15] VITALS: BP 151/89; PULSE 70
--- NOTE | 2021-05-24 14:05 | PROC ---
DATE OF PROCEDURE: SURGEON: Levi Ramey MD PROCEDURE: Colonoscopy. FINDINGS: Normal colonoscopy. COMPLICATIONS: None. LUMBER MARKER: None. ANESTHESIA: MAC. PREOPERATIVE DIAGNOSIS: Screening colonoscopy. POSTOPERATIVE DIAGNOSIS: Screening colonoscopy. RISKS: Risks, benefits, alternatives, and limitations including, but not limited to infection, bleeding, perforation, false positives, and false negatives were explained to the patient. He wished to proceed. PROCEDURE IN DETAIL: The patient was placed in left lateral decubitus position. Digital rectal exam was performed without abnormalities. The scope was introduced and advanced atraumatically to the ileocecal valve. A photo was taken. The scope was brought back to the ascending, transverse, descending colon, and retroflexed. No old or new blood. No masses. No polyps. No diverticulosis. Greater than 8 minutes was spent removing the scope. Prep was acceptable. Approximately 90% of the luminal surface could be seen. The patient tolerated the procedure well. Levi Ramey MD /[id number]
== END 2021-05-24 12:00 | disposition home or self-care (01) ==
LOC: JP.SDS 08:11
PROVIDERS: ATTEND Surgery
DX: Z12.11 Encounter for screening for malignant neoplasm of colon (principal); E66.01 Morbid (severe) obesity due to excess calories; E11.9 Type 2 diabetes mellitus without complications; E78.5 Hyperlipidemia, unspecified
CPT/HCPCS: G0121; J2250; J2704; J3010; J7030

== ENCOUNTER 2025-04-03 14:20 | Emergency (ER) | payer MEDICARE ==
[2025-04-03 16:06] LABS: BASOPHILS ABSOLUTE AUTO 0.13 K/uL (0.00-0.10); BASOPHILS PERCENT AUTO 2.0 % (0.1-1.3); EOSINOPHILS ABSOLUTE AUTO 0.65 K/uL (0.00-0.40); EOSINOPHILS PERCENT AUTO 9.9 % (0.0-5.4); IMMATURE GRAN ABSOLUTE AUTO 0.02 K/uL (0.00-0.23); IMMATURE GRAN PERCENT AUTO 0.3 % (0.0-0.7); LYMPHOCYTES ABSOLUTE AUTO 1.43 K/uL (0.8-3.3); LYMPHOCYTES PERCENT AUTO 21.8 % (11.4-47.7); MONOCYTES ABSOLUTE AUTO 0.55 K/uL (0.20-0.90); MONOCYTES PERCENT AUTO 8.4 % (3.3-12.6); NEUTROPHILS ABSOLUTE AUTO 3.79 K/uL (1.0-7.6); NEUTROPHILS PERCENT AUTO 57.6 % (40.0-78.1); PLATELET COUNT,PLT 179 K/uL (130-375); RED BLOOD CELL COUNT 4.68 M/uL (4.14-5.76); WHITE BLOOD CELL COUNT,WBC 6.6 K/uL (3.2-11.0)
[2025-04-03 16:27] LABS: A/G RATIO 1.0 (1.2-2.2); ALANINE AMINOTRANSFERASE,ALT 35 U/L (12-78); ASPARTATE AMNIOTRANSFERASE,AST 25 U/L (15-37); BILIRUBIN TOTAL 0.4 mg/dL (0.2-1.0); BLOOD UREA NITROGEN,BUN 20 mg/dL (7-18); CARBON DIOXIDE,CO2 27 mmol/L (21-32); CHLORIDE,CL 104 mmol/L (100-108); CREATININE 1.1 mg/dL (0.8-1.3); EST CRCL DRUG DOSING (CG) 55.92 mL/min; ESTIMATED GFR 71 mL/min (>60); GLUCOSE RANDOM 177 mg/dL (74-106); POTASSIUM,K 4.2 mmol/L (3.6-5.2); PROTEIN TOTAL,TP 7.7 g/dL (6.4-8.2); SODIUM,NA 138 mmol/L (140-148)
[2025-04-03] MEDS: methylPREDNISolone Sodium Succinate 125 MG/2 ML SDV IVPUSH ONE (16:47)
[2025-04-03 18:08] VITALS: BP 126/72; PULSE 76
== END 2025-04-03 18:12 | disposition home or self-care (01) ==
LOC: JP.ED 14:20
DX: J45.909 Unspecified asthma, uncomplicated (principal); E11.9 Type 2 diabetes mellitus without complications; Z79.899 Other long term (current) drug therapy; Z88.6 Allergy status to analgesic agent; Z88.8 Allergy status to other drugs, medicaments and biological substances
CPT/HCPCS: 36415; 71046; 80053; 83880; 85025; 85379; 94640; 96374; 99284; 99285; A9270; J2919

== ENCOUNTER 2025-04-29 17:21 | Emergency (ER) | payer MEDICARE ==
[2025-04-29 18:28] LABS: BASOPHILS ABSOLUTE AUTO 0.12 K/uL (0.00-0.10); BASOPHILS PERCENT AUTO 2.0 % (0.1-1.3); EOSINOPHILS ABSOLUTE AUTO 0.65 K/uL (0.00-0.40); EOSINOPHILS PERCENT AUTO 11.0 % (0.0-5.4); IMMATURE GRAN PERCENT AUTO 0.3 % (0.0-0.7); LYMPHOCYTES ABSOLUTE AUTO 1.43 K/uL (0.8-3.3); LYMPHOCYTES PERCENT AUTO 24.3 % (11.4-47.7); MONOCYTES ABSOLUTE AUTO 0.61 K/uL (0.20-0.90); MONOCYTES PERCENT AUTO 10.4 % (3.3-12.6); NEUTROPHILS ABSOLUTE AUTO 3.06 K/uL (1.0-7.6); NEUTROPHILS PERCENT AUTO 52.0 % (40.0-78.1); PLATELET COUNT,PLT 162 K/uL (130-375); RED BLOOD CELL COUNT 4.82 M/uL (4.14-5.76); WHITE BLOOD CELL COUNT,WBC 5.9 K/uL (3.2-11.0)
[2025-04-29 18:30] LABS: IMMATURE GRAN ABSOLUTE AUTO 0.02 K/uL (0.00-0.23)
[2025-04-29] MEDS ORDERED: Sodium Chloride 0.9% 10 ML Syringe FLUSH PRN (18:34)
[2025-04-29] MEDS: methylPREDNISolone Sodium Succinate 125 MG/2 ML SDV ONE (18:36)
[2025-04-29] MEDS: methylPREDNISolone Sodium Succinate 125 MG/2 ML SDV IVPUSH ONE (18:36)
[2025-04-29 18:41] VITALS: BP 158/89; PULSE 94
[2025-04-29 18:52] LABS: A/G RATIO 0.9 (1.2-2.2); ALANINE AMINOTRANSFERASE,ALT 41 U/L (12-78); ASPARTATE AMNIOTRANSFERASE,AST 26 U/L (15-37); BILIRUBIN TOTAL 0.5 mg/dL (0.2-1.0); BLOOD UREA NITROGEN,BUN 12 mg/dL (7-18); CARBON DIOXIDE,CO2 25 mmol/L (21-32); CHLORIDE,CL 103 mmol/L (100-108); CREATININE 1.2 mg/dL (0.8-1.3); ESTIMATED GFR 64 mL/min (>60); GLUCOSE RANDOM 201 mg/dL (74-106); POTASSIUM,K 4.0 mmol/L (3.6-5.2); PROTEIN TOTAL,TP 7.7 g/dL (6.4-8.2); SODIUM,NA 137 mmol/L (140-148); TROPONIN I HIGH SENSITIVITY 8.8 pg/mL (<=60.3)
== END 2025-04-29 19:45 | disposition home or self-care (01) ==
LOC: JP.ED 17:21
DX: J45.901 Unspecified asthma with (acute) exacerbation (principal); K21.9 Gastro-esophageal reflux disease without esophagitis; E11.9 Type 2 diabetes mellitus without complications; Z79.899 Other long term (current) drug therapy; Z79.84 Long term (current) use of oral hypoglycemic drugs; Z88.5 Allergy status to narcotic agent; Z91.048 Other nonmedicinal substance allergy status
CPT/HCPCS: 36415; 71045; 80053; 84484; 85025; 93005; 94640; 96374; 99285; A9270; J2919